=== PATIENT | male | born 1980 | race Caucasian/White ===

== ENCOUNTER 2019-01-07 10:10 | Emergency (ER) | payer OTHER ==
--- NOTE | 2019-01-07 11:01 | ED Physician Documentation ---
PD HPI CHEST PAIN - Stated complaint Stated Complaint: CP - Chief complaint Chief Complaint: Cardiac - History obtained from History obtained from: Patient - History of Present Illness Timing - onset: Last night (at 11pm, constant discomfort in center of the chest that feels like he has to burp) Timing - onset during: Rest Timing - duration: Hours Timing - details: Abrupt onset Severity Comments: moderate Quality: Indigestion, Other (discomfort) Location: Substernal Radiation: Other (none) Improved by: Other (nothing) Worsened by: No: Exertion, Inspiration, Eating, Movement, Palpation, Position Associated symptoms: No: Shortness of air, Diaphoresis, Nausea, Vomiting, Feeling faint / dizzy, General Weakness, Palpitations, Cough Similar symptoms before: Has not had sx before Recently seen: Not recently seen Review of Systems Ten Systems: 10 systems reviewed and negative Constitutional: denies: Fever Throat: reports: Reviewed and negative Cardiac: reports: Chest pain / pressure. denies: Palpitations, Pedal edema, Calf pain Respiratory: denies: Dyspnea, Cough GI: denies: Abdominal Pain, Abdominal Swelling, Nausea, Vomiting Skin: reports: Reviewed and negative Musculoskeletal: reports: Reviewed and negative. denies: Neck pain Neurologic: reports: Reviewed and negative. denies: Generalized weakness, Focal weakness, Numbness, Syncope Immunocompromised: reports: Reviewed and negative PD PAST MEDICAL HISTORY - Past Medical History Past Medical History: Yes Cardiovascular: Hypertension - Past Surgical History Past Surgical History: No - Present Medications Home Medications: Ambulatory Orders Medication Instructions Recorded Confirmed No Known Home Medications 06/05/15 06/05/15 - Allergies Allergies/Adverse Reactions: Allergies Allergy/AdvReac Type Severity Reaction Status Date / Time No Known Drug Allergies Allergy Verified 06/05/15 18:53 - Social History Does the pt smoke?: No Smoking Status: Never smoker Does the pt drink ETOH?: No Does the pt have substance abuse?: No - Immunizations Immunizations are current?: Yes PD ED PE NORMAL - Vitals Vital signs reviewed: Yes - General General: Alert and oriented X 3, No acute distress, Well developed/nourished - HEENT HEENT: Atraumatic, Moist mucous membranes, Pharynx benign - Neck Neck: Supple, no meningeal sign, No JVD - Cardiac Cardiac: RRR, No murmur, No gallop, No rub, Strong equal pulses - Respiratory Respiratory: No respiratory distress, Clear bilaterally - Abdomen Abdomen: Soft, Non tender, Non distended - Male Male : Deferred - Rectal Rectal: Deferred - Derm Derm: Normal color, Warm and dry, No rash - Extremities Extremities: No edema, No calf tenderness / cord - Neuro Neuro: Alert and oriented X 3 Eye Opening: Spontaneous Motor: Obeys Commands Verbal: Oriented GCS Score: 15 - Psych Psych: Normal mood, Normal affect Results - Vitals Vitals: Oxygen O2 Source Room air - EKG (time done) 10:16 Rate: Rate (enter#) (58) Rhythm: NSR [place]: Normal Intervals: Normal VT, QRS normal QRS: Normal Ischemia: Normal ST segments Compare to prior EKG: Old EKG unavailable Computer interpretation: Agree with computer - Labs Labs: Laboratory Tests 01/07/19 11:12 Troponin I High Sens 3.8 normal - Rads (name of study) CXR Radiology: Final report received, See rad report (negative cxr) PD MEDICAL DECISION MAKING - ED course Complexity details: reviewed results, re-evaluated patient, considered differential, d/w patient ED course: 38 y/o M with CP today that he describes as a sensation that he has to burp. He does have a hx of GERD and is on prilosec but felt this was worse than normal. Exam and vitals normal. EKG is nonischemic, troponin is neg. CP is nonexertional and unlikely to be ACS. Also low risk for PE, Wells score is 0. CXR normal, no widening of his mediastinum to suggest TAD. HEART score is a 1. Pt is stable for discharge with outpt f.u. Departure - Departure Disposition: 01 Home, Self Care Clinical Impression: Atypical chest pain Condition: Stable Record reviewed to determine appropriate education?: Yes Instructions: ED Chest Pain Atypical Unkn Cause Follow-Up: your, doctor [Other] - Within 1 week (to recheck your symptoms) Comments: Your EKG, heart enzymes and chest xray today were all normal. You are stable to return home. But if you develop new concerning or worsening symptoms return to the ED for repeat testing. Otherwise continue to take your prilosec as this may be due to acid reflux or esophageal spasm. Discharge Date/Time: 01/07/19 12:25
--- NOTE | 2019-01-07 11:52 | XRAY Report ---
Reason: chest pain Procedure Date: 01/07/2019 Accession Number: [id number] / [id number] Procedure: XR - Chest 1 View X-Ray CPT Code: 99834 FULL RESULT: EXAM: CHEST RADIOGRAPHY EXAM DATE: 01/07/2019 11:10 AM. CLINICAL HISTORY: Chest pain. COMPARISON: CHEST 2 VIEW PA/LAT 06/05/2015 8:09 PM. TECHNIQUE: 1 view. FINDINGS: Lungs/Pleura: No focal opacities evident. No pleural effusion. No pneumothorax. Mediastinum: Within exam limitations, the cardiomediastinal contour is normal. Other: None. IMPRESSION: Normal single view chest. RADIA
[2019-01-07 12:18] VITALS: BP 119/64
== END 2019-01-07 12:25 | disposition home or self-care (01) ==
LOC: ED 10:10
DX: R07.89 Other chest pain (principal); K21.9 Gastro-esophageal reflux disease without esophagitis; I10 Essential (primary) hypertension
CPT/HCPCS: 36415; 71045; 84484; 93005; 99283; 99284

== ENCOUNTER 2021-06-21 13:00 | Outpatient (CLI) | payer OTHER ==
[2021-06-21 14:11] VITALS: BP 140/96
--- NOTE | 2021-06-21 14:11 | SLEEP CARE CONSULTATION ---
Information from patient questionnaire entered by Severo Sequeira MA. I have reviewed and concur with the information entered by Severo Sequeira MA. This document represents the service I personally performed and the decisions made by , Connie Jacques ARNP. History of Present Illness Service Date and Time: 06/21/2021 1300 Reason for Visit: New patient (ONSET 05/2018, NO PRIORS,) Chief Complaint: reports: Unrefreshed sleep, Snoring, Observed pauses in breathi ng, Frequent awakenings at night Date of Onset: 5 YEARS Usual bedtime: 10 PM Time it takes to fall asleep: 1-2 HOURS Snores at night: Yes Observed to quit breathing while asleep: Yes Sleeps alone due to snoring: No Number of times waking at night: 6 OR MORE Reasons for waking at night: reports: Snoring, Pain, Other (unknown reason; ?noises). denies: Choking, Gasping for air Toss, Turn, or Twitch while sleeping: Yes Recalls having dreams: No Usually gets out of bed at: 0600; same on weekends Feels refreshed in the morning: No Morning headache: Yes (2 x a week; last until 1200 noon) Sleepy or fatigued during the day: Yes Ever fallen asleep while driving: No Takes day naps: No Dreams during day naps: No Prior sleep studies: No Additional HPI information: I had the pleasure of seeing RJ WILLIAM today regarding the possibility of him having a sleep disorder. His current complaints are snoring, unrefreshed sle ep and frequent night awakenings. He states that he only gets 4-6 hours a night. He is waking up constantly and is always tired. He will wake up from his snoring and his snoring is loud according to . She has seen him have pauses in breathing when sleeping. He will lay down between 9:30-10 PM but it will take up to 2 hours to fall asleep. He will then wake up 6 or more times during the night, many times there is no apparent reason for his awakenings. He has difficulty falling back to sleep and is usually awake, laying in bed, before his alarm. - Parasomnia Symptoms Ever been unable to move upon waking from sleep: No Walks in sleep: No Talks in sleep: No Ever acted out dreams in sleep: No Ever felt weak in the knees when startled or emotional: No Bothered by creepy, crawly, restless sensations in legs: Yes (once a week, feels like his legs want to move) Problems with memory or concentration: Yes (really forgetful, sets alarms for everything; concentration too) Subjective Initial [place] Sleepiness Scale score: 10 (06/18) Past Medical History Past Medical History: reports: Hypertension, Anxiety, GERD, Attention deficit Social History The patient's occupation is a AM. Patient is and lives in . Have you smoked in the past 12 months: No Alcohol use: No Caffeine use: Yes Caffeine amount and frequency: 2 X DAILY Family History Family history of sleep disordered breathing: Yes Family Hx Sleep Apnea: Father: Snoring, Sibling: Snoring, Sleep apnea - Treated, Grandparent: Snoring, Sleep apnea - Treated Allergies and Home Medications Known drug allergies: No Drug allergies reviewed: Yes (NKDA) Home medication list reviewed: Yes Allergy and home medication list: Allergies No Known Drug Allergies Allergy (Verified 06/05/15 18:53) Medications: Propanolol Omeprazole Review of Systems Weight gain over past 5 years: 30 lb Cardiovascular: reports: high blood pressure, palpitations (not for last year) Neurological: reports: headaches, head trauma (few concussions), gait or balance problems Psychiatric: reports: Attention Deficit Hyperactivity, anxiety Ear/Nose/Throat: reports: wisdom teeth removed. denies: dry mouth/throat, injury to nose, tonsillectomy Immunologic: denies: allergies to food or environment Physical Exam Vital signs obtained and entered by: Gama SEQUEIRA CMA [facility] Blood Pressure: 140/96 (PULSE 74, LEFT, RESP 16,) Heart Rate: 73 O2 Saturation: 97 (PAPER MASK) Height: 6 ft Weight: 240 lb Body Mass Index: 32.5 BMI Classification: Obese Neck circumference: 16 (INCHES) Mouth and throat: normal Soft palate: long Hard palate: normal Uvula: normal Uvula visualization: 50% Mallampati Class II Tongue: enlarged in size with teeth apple on lateral edges Tonsils: small Neck: normal w/o lymphadenopathy or thyromegaly Heart: regular rate and rhythm Lungs: clear bilaterally Impression and Plan 1. Suspected Obstructive Sleep Apnea-Hypopnea Syndrome, as suggested by a history of loud and irregular snoring, observed cessation of breath while asleep, morning headache, frequent awakening during the night, unrefreshed sleep and cognitive impairment. Narrow oropharynx and obesity are common predisposing factors for obstructive sleep apnea-hypopnea syndrome. I recommend proceeding to polysomnography to confirm the diagnosis and to assess severity. If the patient has significant sleep disordered breathing, a manual CPAP titration study will also be performed to find the optimal treatment pressure. I informed the patient of what the sleep studies involve and after some discussion, obtained agreement to proceed. The pathophysiology of obstructive sleep apnea-hypopnea syndrome was discussed with the patient and health risks of cardiovascular and cerebrovascular disease if not treated. Risks of drowsy driving discussed in detail and patient advised to avoid long distance driving and to bone char puller at the first sign of drowsiness. Patient agreed to plan. * Schedule polysomnography +- manual CPAP titration study and return in 1-2 weeks after the study to discuss results. * Avoid long distance driving or driving when feeling sleepy. * Avoid alcohol, sedative and muscle relaxant around bedtime. * Attempt to lose weight. * Review instructions provided by trained office staff on how to prepare for the sleep study. * Return for follow-up after sleep study completed. Counseling Topics: Weight loss health impact Visit Type: In Office Time Spent with Patient (minutes): 30 Provider Statement: I spent 100% of the Face to Face Visit with the patient with greater than 50% spent counseling the patient and coordination of care.
== END 2021-06-21 13:01 | disposition home or self-care (01) ==
LOC: SC 13:00
PROVIDERS: ATTEND Nurse Practitioner Family
DX: R06.83 Snoring (principal); G47.8 Other sleep disorders; R06.81 Apnea, not elsewhere classified; I10 Essential (primary) hypertension; E66.9 Obesity, unspecified; Z68.32 Body mass index [BMI] 32.0-32.9, adult
CPT/HCPCS: 99203; 99212

== ENCOUNTER 2021-07-05 08:27 | Outpatient (CLI) | payer OTHER | END 2021-07-05 08:28 | disposition home or self-care (01) | LOC: SC 08:27 | PROVIDERS: ATTEND Nurse Practitioner Family | DX: R06.83 Snoring (principal); R06.81 Apnea, not elsewhere classified; G47.8 Other sleep disorders; I10 Essential (primary) hypertension; R09.02 Hypoxemia | CPT/HCPCS: 95806 ==

== ENCOUNTER 2021-07-31 08:50 | Outpatient (CLI) | payer OTHER ==
[2021-07-31 09:02] VITALS: BP 127/75
--- NOTE | 2021-07-31 09:02 | SLEEP CARE CONSULTATION ---
Information from patient questionnaire entered by Severo Nicolas MA. I have reviewed and concur with the information entered by Severo Nicolas MA. This document represents the service I personally performed and the decisions made by Georgie conway Caren J, ARNP. History of Present Illness Service Date and Time: 07/31/2021 0840 Initial [place] Sleepiness Scale score: 10 (06/18) Current [place] Sleepiness Scale score: 9 (07/19) Additional HPI information: RJ WILLIAM returns for follow up and results of the recently performed home sleep study. The patient was informed of the following findings: No significant sleep disordered breathing with an average AHI of 2.5 and lianna oxygen saturation of 85%. Pulse oximetry signal was unreliable during the study. I explained the pathophysiology behind obstructive sleep apnea. Patient does not have sleep apnea and was advised how weight gain could increase the risk of developing sleep apnea in the future. Snoring can be reduced by weight loss. Weight loss is best achieved with diet consult. Patient instructed to contact PCP for referral. Snoring can also be treated with an oral appliance from a dentist. Advised to check insurance coverage. In addition, an ENT evaluation can be do to see if other treatment is indicated. Patient counseled not drink alcohol less than 4 hours before bedtime as it can increase snoring and apnea. Patient was cautioned about risks of drowsy driving until sleepiness symptoms resolve. Sleep Study - Results Type of Sleep Study: Home sleep study (F/U HOME STUDY, 07/05/2021 [facility],) Prior sleep studies: No Polysomnography/Home Sleep Study results: Physician Impression: The quality of the study is fair due to unreliable pulse oximetry signal. The length of the study is adequate (> 240 minutes). Please also see the tabulated and graphic data. 1. No significant sleep disordered breathing, with an AHI of 2.5/hr and lianna SaO2 of 85%. During the study, the patient had 2 apneas (2 obstructive, 0 central, 0 mixed) and 12 hypopneas. The longest episode lasted 106.0 seconds. The few respiratory events occurred almost exclusively during supine sleep (supine AHI was 3.8 and non-supine, 0.46). 2. Hypoxemia (ICD-10 R09.02), mild, with the lowest oxygen saturation of 85 % and 184.9 minutes with SaO2 under 90%. Baseline oxygen saturation was normal (Average oxygen saturation was 90%). However, the pulse oximetry data is not reliable. Allergies and Home Medications Home medication list reviewed: Yes (no changes) Allergy and home medication list: Allergies No Known Drug Allergies Allergy (Verified 06/05/15 18:53) Review of Systems Review of systems same as previous: Yes (no changes) Physical Exam Vital signs obtained and entered by: MIKHAIL BIRD AHMET Blood Pressure: 127/75 (LEFT, RESP 18, PULSE 71) Heart Rate: 72 O2 Saturation: 97 (CLOTH MASK) Height: 6 ft Weight: 240 lb (UNIFORM AND BOOTS) Body Mass Index: 32.5 BMI Classification: Obese Impression and Plan 1. Suspected Obstructive Sleep Apnea-Hypopnea Syndrome, as suggested by a history of loud and irregular snoring, observed cessation of breath while asleep, frequent awakening during the night, unrefreshed sleep, and excessive daytime sleepiness. Patient returns today after an HST that was sub-optimal due to unreliable pulse oximetry. Based upon patient symptomology, I recommend proceeding to polysomnography to confirm the diagnosis and to assess severity. If the patient has significant sleep disordered breathing, a manual CPAP ti tration study will also be performed to find the optimal treatment pressure. I informed the patient of what the sleep studies involve and after some discussion, obtained agreement to proceed. The pathophysiology of obstructive sleep apnea-hypopnea syndrome was discussed with the patient and health risks of cardiovascular and cerebrovascular disease if not treated. Risks of drowsy driving discussed in detail and patient advised to avoid long distance driving and to nail puller at the first sign of drowsiness. Patient agreed to plan. * Schedule polysomnography * Avoid long distance driving or driving when feeling sleepy. * Avoid alcohol, sedative and muscle relaxant around bedtime. * Attempt to lose weight. * Review instructions provided by trained office staff on how to prepare for the sleep study. * Return for follow-up after sleep study completed. Counseling Topics: Weight loss health impact Visit Type: In Office Time Spent with Patient (minutes): 16 Provider Statement: I spent 100% of the Face to Face Visit with the patient with greater than 50% spent counseling the patient and coordination of care.
== END 2021-07-31 08:51 | disposition home or self-care (01) ==
LOC: SC 08:50
PROVIDERS: ATTEND Nurse Practitioner Family
DX: R06.83 Snoring (principal); R06.81 Apnea, not elsewhere classified; G47.8 Other sleep disorders; G47.10 Hypersomnia, unspecified; E66.9 Obesity, unspecified; Z68.32 Body mass index [BMI] 32.0-32.9, adult
CPT/HCPCS: 99212

== ENCOUNTER 2021-08-13 19:38 | Outpatient (CLI) | payer OTHER | END 2021-08-13 19:39 | disposition home or self-care (01) | LOC: SC 19:38 | PROVIDERS: ATTEND Nurse Practitioner Family | DX: G47.33 Obstructive sleep apnea (adult) (pediatric) (principal) | CPT/HCPCS: 95810 ==

== ENCOUNTER 2021-08-28 12:01 | Outpatient (CLI) | payer OTHER ==
--- NOTE | 2021-08-28 12:12 | SLEEP CARE CONSULTATION ---
Information from patient questionnaire entered by Severo Nicolas MA. I have reviewed and concur with the information entered by Severo Nicolas MA. This document represents the service I personally performed and the decisions made by , Connie Jacqeus ARNP. History of Present Illness Service Date and Time: 08/28/2021 1140 Initial [place] Sleepiness Scale score: 10 (06/18) Current [place] Sleepiness Scale score: 8 Additional HPI information: RJ WILLIAM returns via video telehealth visit for follow up and results of the recently performed polysomnography. I explained the pathophysiology behind obstructive sleep apnea. We then spent quite a bit of time discussing different treatment options. For mild obstructive sleep apnea, surgery and oral appliance are alternatives to nasal CPAP therapy but in moderate or severe cases, nasal CPAP is the most effective and reliable treatment. Because apnea is primarily in supine position, then positional management therapy could be effective. Methods discussed such as positioning with pillows to prevent supine sleep. I reviewed the impact of weight changes on sleep apnea and strongly recommended losing weight. Patient counseled not drink alcohol less than 4 hours before bedtime as it can increase snoring and apnea. Patient was cautioned about risks of drowsy driving until sleepiness symptoms resolve. Sleep Study - Results Type of Sleep Study: Polysomnography (F/U POLY STUDY, 08/13/2021 [facility],) Prior sleep studies: No Polysomnography/Home Sleep Study results: IMPRESSION: The quality of the study is good. The patient had minimally reduced sleep efficiency. The sleep architecture was normal. Respiratory monitoring showed mild obstructive sleep apnea-hypopnea (AHI = 5.9) associated with oxyhemoglobin desaturation and minimal hypoxia (lianna oxygen saturation of 89%). The respiratory events occurred almost exclusively during supine sleep (supine AHI = 20.0; non-supine = 0.88). Snore was light to moderate in intensity. There was no significant periodic leg movement of sleep. Cardiac rhythm was normal sinus rhythm without significant arrhythmia. No abnormal behavior (parasomnia) observed during the night. Allergies and Home Medications Home medication list reviewed: Yes (no changes) Allergy and home medication list: Allergies No Known Drug Allergies Allergy (Verified 06/05/15 18:53) Review of Systems Review of systems same as previous: Yes (no changes) Physical Exam Vital signs obtained and entered by: MIKHAIL DENTON Height: 6 ft Weight: 240 lb (per patient) Body Mass Index: 32.5 BMI Classification: Obese Impression and Plan 1. Obstructive Sleep Apnea-Hypopnea Syndrome, mild, with lowest oxygen saturation of 89%. Obviously this is the cause of the patients symptoms of unrefreshed sleep, and excessive daytime sleepiness. Positive pressure therapy could benefit hypertension, anxiety, gastric reflux and attention deficit. As mentioned above, the patient chose an oral appliance to treat their apnea. A 3 month follow up will be made to see if appliance has reduced symptoms. If so, another polysomnography will be ordered with use of the oral appliance to check efficacy in reducing apnea. Until patient is able to use the oral appliance, positional therapy is advised to avoid supine sleep with pillow positioning or one of the commercial products because apnea is more severe supine. Patient is moving to [place]. I advised him to find a sleep provider there for follow-ups. He would like a copy of his sleep study as well as other documents to take with him. I will have my office staff pull this information together and he will come in to sign a release of medical records form. He voiced understanding about follow-ups with the oral device. * Oral Appliance * Attempt to lose weight. * Avoid alcohol consumption near bedtime. * Avoid supine sleep * The patient is again cautioned about driving until sleepiness completely resolves. * Return one month after oral appliance obtained to a sleep provider for assessment of response to therapy. Counseling Topics: Sleeping position, Weight loss health impact Visit Type: Telehealth Video Video Type: [employer] People Patient Location: Home Location of Provider: Office Patient agrees and consents to this telehealth visit type: Yes Patient agrees to have their insurance billed: Yes Time Spent with Patient (minutes): 20 Provider Statement: I spent 100% of the Telehealth Video Call with the patient with greater than 50% spent counseling the patient and coordination of care.
== END 2021-08-28 12:02 | disposition home or self-care (01) ==
LOC: SC 12:01
PROVIDERS: ATTEND Nurse Practitioner Family
DX: G47.33 Obstructive sleep apnea (adult) (pediatric) (principal); E66.9 Obesity, unspecified; Z68.32 Body mass index [BMI] 32.0-32.9, adult